=== PATIENT | female | born 1965 | race Caucasian/White ===

== ENCOUNTER 2018-05-12 16:57 | Observation (INO) | payer SELFPAY ==
[2018-05-12 17:44] LABS: Absolute Lymphocytes (CBC) 2.2 K/uL (0.7-4.9); Absolute Monocytes 0.5 K/uL (0.1-1.3); Absolute Neutrophil 2.8 K/uL (1.8-8.0); Basophils % 0.7 % (0-1.3); Eosinophils % 1.4 % (0-4.4); Hematocrit 40.4 % (36.0-45.0); Lymphocytes % 38.6 % (15.3-44.8); MCH 29.8 pg (27.0-35.0); MCV 87.5 fL (80-100); Monocytes % 9.6 % (3.3-12.3); RBC Red Blood Cell Count 4.61 M/uL (3.86-4.86)
[2018-05-12 17:47] LABS: Protime INR 0.97
[2018-05-12] MEDS ORDERED: ASPIRIN 81 MG CHEWABLE TABLET ONE (17:58)
[2018-05-12] MEDS ORDERED: PANTOPRAZOLE 40 MG INJ ONE (17:58)
[2018-05-12] MEDS ORDERED: ONDANSETRON 4 MG/2 ML VIAL ONE (17:58)
[2018-05-12 18:14] LABS: ALT/SGPT 20 U/L (12-78); AST/SGOT 8 U/L (15-37); Albumin 3.6 g/dL (3.4-5.0); Alkaline Phosphatase 86 U/L (45-117); BUN Blood Urea Nitrogen 9 mg/dL (7-18); Bicarbonate 29 mmol/L (21-32); Bilirubin Direct < 0.1 mg/dL (0-0.2); Bilirubin Total 0.3 mg/dL (0.2-1.0); Glucose Level 86 mg/dL (74-106); Magnesium 2.3 mg/dL (1.8-2.4); NT PRO-BNP 46 pg/mL (<125); Potassium 3.4 mmol/L (3.5-5.1); Sodium Level 140 mmol/L (136-145); Troponin (Emerg Dept Use Only) < 0.02 ng/mL (0.0-0.045)
[2018-05-12] MEDS ORDERED: MORPHINE 2 MG/ML SYR ONE ×2 (19:04→22:16)
--- NOTE | 2018-05-12 19:56 | RAD REPORT ---
EXAM DESCRIPTION: RAD - Chest Single View - 05/12/2018 7:46 pm CLINICAL HISTORY: CHEST PAIN Chest pain. COMPARISON: No comparisons FINDINGS: Portable technique limits examination quality. The lungs are grossly clear. The heart is normal in size. No displaced fractures. IMPRESSION: No acute intrathoracic process suspected.
--- NOTE | 2018-05-12 20:57 | RAD REPORT ---
EXAM DESCRIPTION: CT - Chest For Pe Angio - 05/12/2018 8:49 pm CLINICAL HISTORY: Chest pain. chest pain, shortness of breath COMPARISON: Chest Single View dated 05/12/2018 TECHNIQUE: CT angiogram of the pulmonary arteries was performed with MIP. All CT scans are performed using dose optimization technique as appropriate and may include automated exposure control or mA/KV adjustment according to patient size. FINDINGS: No evidence of pulmonary thromboembolism. No acute aortic finding demonstrated. The lungs are clear. No significant pericardial or pleural fluid. No concerning bony finding. Cholecystectomy clips. IMPRESSION: No evidence of pulmonary thromboembolism. No acute lung findings.
--- NOTE | 2018-05-12 21:11 | ER ---
Nurse's Notes [facility] Name: Olga Lidia Lehman Age: 53 yrs Sex: Female : 1965 Arrival Date: 05/12/2018 Time: 16:58 Bed 18 Private MD: Diagnosis: Chest pain, unspecified Presentation: 05/12 17:05 Presenting complaint: Burning substernal chest pain that radiates to left shoulder, hb nausea, and headache x 2 days. Hx SVT w/ ablation. Transition of care: patient was not received from another setting of care. Onset of symptoms was May 11, 2018. Risk Assessment: Do you want to hurt yourself or someone else? Patient reports no desire to harm self or others. Care prior to arrival: None. 17:05 Method Of Arrival: Ambulatory hb 17:05 Acuity: KIM 2 hb 17:05 Acuity: KIM 2 hb 17:25 Initial Sepsis Screen: Does the patient meet any 2 criteria? No. Patient's initial em sepsis screen is negative. Does the patient have a suspected source of infection? No. Patient's initial sepsis screen is negative. 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 - Social history:: Smoking status: Patient/guardian denies using tobacco. - Ebola Screening: : No symptoms or risks identified at this time. Screenin:08 Abuse screen: Denies threats or abuse. Denies injuries from another. Nutritional hb screening: No deficits noted. Tuberculosis screening: No symptoms or risk factors identified. Fall Risk None identified. Assessment: 17:15 General: Appears uncomfortable, Behavior is calm, cooperative. Pain: Complains of pain em in mid-sternal area Pain radiates to left scapular area Pain began this morning. Neuro: Level of Consciousness is awake, alert, obeys commands, Oriented to person, place, time, situation, Loan Services Professional are equal bilaterally Moves all extremities. Speech is normal, Pupils are PERRLA, Numbness in left arm paresthesias in left arm Reports headache. Cardiovascular: Reports shortness of breath, Heart tones S1 S2 present Capillary refill < 3 seconds Patient's skin is warm and dry. Rhythm is sinus rhythm. Respiratory: Airway is patent Respiratory effort is even, unlabored, Respiratory pattern is regular, symmetrical. GI: Abdomen is flat, Patient currently denies nausea, vomiting. : No signs and/or symptoms were reported regarding the genitourinary system. EENT: No signs and/or symptoms were reported regarding the EENT system. Derm: Skin is intact, is healthy with good turgor, Skin is pink, warm \T\ dry. Musculoskeletal: Range of motion: intact in all extremities. 18:00 Reassessment: Patient appears in no apparent distress at this time. Patient and/or em family updated on plan of care and expected duration. Pain level reassessed. Patient is alert, oriented x 3, equal unlabored respirations, skin warm/dry/pink. 18:47 Reassessment: Patient appears in no apparent distress at this time. Patient and/or em family updated on plan of care and expected duration. Pain level reassessed. Patient is alert, oriented x 3, equal unlabored respirations, skin warm/dry/pink. rates pain 8/10 Patient states symptoms have improved. 18:55 Reassessment: Patient appears in no apparent distress at this time. reports headache em and chest pain, provider notified, new medications ordered. 19:15 Pain: Complains of pain in chest Pain currently is 6 out of 10 on a pain scale. Quality lp1 of pain is described as burning. Neuro: Level of Consciousness is awake, alert, obeys commands, Gait is steady. Cardiovascular: Patient's skin is warm and dry. Rhythm is sinus rhythm. Respiratory: Respiratory effort is even, unlabored. Derm: Skin is pink, warm \T\ dry. 20:15 Reassessment: Patient appears in no apparent distress at this time. Patient and/or lp1 family updated on plan of care and expected duration. Pain level reassessed. Patient is alert, oriented x 3, equal unlabored respirations, skin warm/dry/pink. 21:10 Reassessment: Patient appears in no apparent distress at this time. Patient is alert, lp1 oriented x 3, equal unlabored respirations, skin warm/dry/pink. Patient states feeling better. Patient states symptoms have improved. 22:00 Reassessment: Patient and/or family updated on plan of care and expected duration. Pain lp1 level reassessed. Patient is alert, oriented x 3, equal unlabored respirations, skin warm/dry/pink. Patinet aware of pending admission; Provider notified of elevated BP, asymptomatic. Vital Signs: 17:06 BP 176 / 110; Pulse 83; Resp 21; Pulse Ox 100% on R/A; Pain 8/10; hb 18:00 BP 158 / 105; Pulse 72; Resp 18; Pulse Ox 99% on R/A; em 18:48 BP 175 / 98; Pulse 75; Resp 19; Pulse Ox 99% on R/A; Pain 8/10; em 19:05 Temp 98.8(O); em 19:30 BP 161 / 95; Pulse 70; Resp 16; Pulse Ox 99% on R/A; lp1 20:00 BP 162 / 96; Pulse 78; Resp 20; Pulse Ox 98% on R/A; lp1 21:00 BP 175 / 100; Pulse 71; Resp 15; Pulse Ox 98% on R/A; Pain 0/10; lp1 22:00 BP 163 / 99; Pulse 77; Resp 20; Pulse Ox 99% on R/A; lp1 22:50 BP 164 / 94; Pulse 71; Resp 15; Pulse Ox 99% on R/A; Pain 0/10; lp1 ED Course: 16:58 Patient arrived in ED. as 17:06 Triage completed. hb 17:07 Trevor Bonilla LVN is Primary Nurse. em 17:07 Arm band placed on right wrist. hb 17:15 editorial specialist on. Pulse ox on. NIBP on. em 17:15 Initial lab(s) drawn, by tx, sent to lab. Inserted saline lock: 20 gauge in right em antecubital area, using aseptic technique. Blood collected. 17:15 Patient maintains SpO2 saturation greater than 95% on room air. em 17:16 EKG done, by ED staff, reviewed by Tyrone Winston MD. formerly [facility] 17:22 Ross Uriarte PA is PHCP. [facility] 17:22 Tyrone Winston MD is Attending Physician. [facility] 19:15 Patient has correct armband on for positive identification. Bed in low position. Call lp1 light in reach. 19:43 X-ray completed. Portable x-ray completed in exam room. Patient tolerated procedure tm4 well. 20:48 CT completed. Patient moved to CT via wheelchair. Patient moved back from CT. kw1 21:10 Gi Hamilton MD is Hospitalizing Provider. [facility] 21:11 No provider procedures requiring assistance completed. lp1 21:11 Patient admitted, IV remains in place. lp1 Administered Medications: 17:58 Drug: Aspirin 325 mg Route: PO; em 19:01 Follow up: Response: No adverse reaction em 18:01 Drug: ProTONIX 40 mg Route: IVP; Site: right antecubital; hb 19:02 Follow up: Response: No adverse reaction em 18:01 Drug: Zofran 4 mg Route: IVP; Site: right antecubital; hb 19:02 Follow up: Response: No adverse reaction em 19:22 Drug: morphine 2 mg Route: IVP; Site: right antecubital; lp1 20:00 Follow up: Response: Pain is decreased lp1 22:12 Drug: morphine 2 mg Route: IVP; Site: right antecubital; lp1 23:05 Follow up: Response: No adverse reaction; Blood pressure is unchanged lp1 Outcome: 21:10 Decision to Hospitalize by Provider. [facility] 21:11 Condition: stable lp1 21:11 Instructed on the need for admit. 22:50 Admitted to Med/surg accompanied by nurse, via wheelchair, room 230, with chart, Report lp1 called to Adry Cantu LVN 23:17 Patient left the ED. lp1 Signatures: Ross Uriarte PA PA Trista Osorio tm4 Trevor Bonilla LVN ICT DEVELOPMENT MANAGER em Nita Ward Laura, RN RN lp1 Hazel Puente RN RN Dali Garcia formerly [facility] Erna Galdamez kw1
--- NOTE | 2018-05-12 21:11 | EDPHYS ---
Physician Documentation [facility] Name: Olga Lidia Lehman Age: 53 yrs Sex: Female : 1965 Arrival Date: 05/12/2018 Time: 16:58 Bed 18 Private MD: ED Physician Tyrone Winston HPI: 05/12 17:30 This 53 yrs old Female presents to ER via Ambulatory with complaints of Chest jmm Pain, Shoulder Pain, High Blood Pressure. 17:30 The patient or guardian reports chest pain that is located primarily in the substernal jmm area. Onset: this morning. The pain radiates to the left arm. Associated signs and symptoms: Pertinent positives: nausea. The chest pain is described as burning. Duration: The patient or guardian reports a single episode, that is still ongoing. Modifying factors: The symptoms are alleviated by nothing. the symptoms are aggravated by nothing. This is a 53 year old female with a history of SVT that presents to the ED with substernal chest pain and nausea beginning this morning. Patient states yesterday she had difficulty swallowing her food an attempted to alleviate her nausea with carafate. Patient awoke this morning with nausea and chest pain. . 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 - Social history:: Smoking status: Patient/guardian denies using tobacco. - Ebola Screening: : No symptoms or risks identified at this time. ROS: 17:30 Constitutional: Negative for fever, chills, and weight loss. jmm 17:30 Cardiovascular: Positive for chest pain. 17:30 Respiratory: Positive for shortness of breath. 17:30 Abdomen/GI: Positive for nausea and vomiting. 17:30 All other systems are negative. Exam: 17:30 Constitutional: This is a well developed, well nourished patient who is awake, alert, jmm and in no acute distress. Head/Face: atraumatic. Eyes: EOMI, no conjunctival erythema appreciated ENT: Moist Mucus Membranes Neck: Trachea midline, Supple Chest/axilla: Normal chest wall appearance and motion. 17:30 Cardiovascular: Rate: normal, Rhythm: regular, Pulses: no pulse deficits are appreciated. 17:30 Respiratory: the patient does not display signs of respiratory distress, Respirations: normal, Breath sounds: are clear throughout. 17:30 Abdomen/GI: Inspection: abdomen appears normal, Bowel sounds: normal, Palpation: abdomen is soft and non-tender, in all quadrants. 17:30 Back: ROM is normal. 17:30 Musculoskeletal/extremity: ROM: intact in all extremities. 17:30 Skin: Appearance: Color: normal in color. 17:30 Neuro: Orientation: is normal, Mentation: is normal, Memory: is normal, Gait: is steady. 17:30 Psych: Behavior/mood is pleasant, cooperative. Vital Signs: 17:06 BP 176 / 110; Pulse 83; Resp 21; Pulse Ox 100% on R/A; Pain 8/10; hb 18:00 BP 158 / 105; Pulse 72; Resp 18; Pulse Ox 99% on R/A; em 18:48 BP 175 / 98; Pulse 75; Resp 19; Pulse Ox 99% on R/A; Pain 8/10; em 19:05 Temp 98.8(O); em 19:30 BP 161 / 95; Pulse 70; Resp 16; Pulse Ox 99% on R/A; lp1 20:00 BP 162 / 96; Pulse 78; Resp 20; Pulse Ox 98% on R/A; lp1 21:00 BP 175 / 100; Pulse 71; Resp 15; Pulse Ox 98% on R/A; Pain 0/10; lp1 22:00 BP 163 / 99; Pulse 77; Resp 20; Pulse Ox 99% on R/A; lp1 22:50 BP 164 / 94; Pulse 71; Resp 15; Pulse Ox 99% on R/A; Pain 0/10; lp1 MDM: 17:30 Patient medically screened. mohan 21:09 The patient was given aspirin in the Emergency Department. Data reviewed: vital signs, [facility] nurses notes, lab test result(s), radiologic studies, CT scan. Data interpreted: Pulse oximetry: on room air is 99 %. Interpretation: normal. 05/12 17:16 Order name: Basic Metabolic Panel em 05/12 17:16 Order name: CBC with Diff em / 17:16 Order name: LFT's em / 17:16 Order name: Magnesium em / 17:16 Order name: NT PRO-BNP em / 17:16 Order name: PT-INR em / 17:16 Order name: Troponin (emerg Dept Use Only) em 12/ 17:46 Order name: CBC with Automated Diff; Complete Time: 18:03 EDMS 12/ 17:56 Order name: Protime (+INR); Complete Time: 18:03 EDMS 12/ 18:14 Order name: Basic Metabolic Panel; Complete Time: 18:53 EDMS / 18:14 Order name: Liver (Hepatic) Function; Complete Time: 18:53 EDMS / 18:14 Order name: Troponin (Emerg Dept Use Only); Complete Time: 18:53 EDMS 05/12 18:14 Order name: NT PRO-BNP; Complete Time: 18:53 EDMS 05/12 18:14 Order name: Magnesium; Complete Time: 18:53 EDMS 05/12 17:16 Order name: XRAY Chest (1 view) em / 17:16 Order name: EKG; Complete Time: 18:55 em 05/12 17:16 Order name: Cardiac monitoring; Complete Time: 17:22 em 05/12 17:16 Order name: EKG - Nurse/Tech; Complete Time: 17:22 em 05/12 17:16 Order name: IV Saline Lock; Complete Time: 17:22 em 05/12 17:16 Order name: Labs collected and sent; Complete Time: 17:22 em 05/12 17:16 Order name: O2 Per Protocol; Complete Time: 17:22 em 05/12 17:16 Order name: O2 Sat Monitoring; Complete Time: 17:22 em 05/12 19:56 Order name: RAD; Complete Time: 20:04 EDMS 12/ 20:12 Order name: CT Chest For PE Angio [facility] 05/12 20:57 Order name: CT; Complete Time: 20:59 EDMS Administered Medications: 17:58 Drug: Aspirin 325 mg Route: PO; em 19:01 Follow up: Response: No adverse reaction em 18:01 Drug: ProTONIX 40 mg Route: IVP; Site: right antecubital; hb 19:02 Follow up: Response: No adverse reaction em 18:01 Drug: Zofran 4 mg Route: IVP; Site: right antecubital; hb 19:02 Follow up: Response: No adverse reaction em 19:22 Drug: morphine 2 mg Route: IVP; Site: right antecubital; lp1 20:00 Follow up: Response: Pain is decreased lp1 22:12 Drug: morphine 2 mg Route: IVP; Site: right antecubital; lp1 23:05 Follow up: Response: No adverse reaction; Blood pressure is unchanged lp1 Disposition: 05/12/18 21:10 Hospitalization ordered by Gi Hamilton for Observation. Preliminary diagnosis is Chest pain, unspecified. - Bed requested for Telemetry/MedSurg (observation). - Status is Observation. lp1 - Condition is Stable. - Problem is new. - Symptoms have improved. UTI on Admission? No Addendum: 05/14/2018 07:08 Co-signature as Attending Physician, Tyrone Winston MD I agree with the assessment and c parada plan of care. Signatures: Dispatcher [employer] Erna Rodrigues, RN Tyrone Varela MD MD cha Mickail, Joel, PA PA [facility] Trevor Bonilla, FARM LABORER FARM LABORER em Brenna Weaver, TOMMY RN [facility] Hazel Puente RN RN Corrections: (The following items were deleted from the chart) 05/12 22:13 21:10 Hospitalization Ordered by Gi Hamilton MD for Observation. Preliminary kl diagnosis is Chest pain, unspecified. Bed requested for Telemetry/MedSurg (observation). Status is Observation. Condition is Stable. Problem is new. Symptoms have improved. UTI on Admission? No. [facility] 23:17 22:13 05/12/2018 21:10 Hospitalization Ordered by Gi Hamilton MD for Observation. lp1 Preliminary diagnosis is Chest pain, unspecified. Bed requested for Telemetry/MedSurg (observation). Status is Observation. Condition is Stable. Problem is new. Symptoms have improved. UTI on Admission? No. kl
[2018-05-12] MEDS ORDERED: MORPHINE 4 MG/ML SYR IV PRN (21:21)
[2018-05-12] MEDS ORDERED: ACETAMINOPHEN 500 MG TAB PO PRN (21:21)
[2018-05-12 23:24] VITALS: BMI 32.9
[2018-05-13 05:31] LABS: Absolute Lymphocytes (CBC) 2.4 K/uL (0.7-4.9); Absolute Monocytes 0.6 K/uL (0.1-1.3); Absolute Neutrophil 2.8 K/uL (1.8-8.0); Basophils % 0.8 % (0-1.3); Eosinophils % 2.1 % (0-4.4); Hematocrit 38.7 % (36.0-45.0); Lymphocytes % 40.2 % (15.3-44.8); MCH 29.9 pg (27.0-35.0); MCV 88.6 fL (80-100); MPV 7.8 fL (7.6-11.3); Monocytes % 9.8 % (3.3-12.3); RBC Red Blood Cell Count 4.36 M/uL (3.86-4.86)
[2018-05-13 05:32] LABS: Potassium 3.4 mmol/L (3.5-5.1)
--- NOTE | 2018-05-13 06:17 | EKG ---
Test Date: 2018-05-12 Test Time: 17:09:06 Compo Caster: RAJINDER MEASUREMENT RESULTS: Intervals: Rate: 70 TN: 138 QRSD: 84 QT: 406 QTc: 438 [place]: P: 14 TN: 138 QRS: 0 T: 15 INTERPRETIVE STATEMENTS: Normal sinus rhythm Possible Left atrial enlargement Left ventricular hypertrophy Nonspecific ST abnormality Abnormal ECG No previous ECG available for comparison Electronically Signed On 05-13-18 06:16:28 MEDICAL OFFICER by Ryder Mcgee
[2018-05-13] MEDS: ENOXAPARIN 40 MG/0.4 ML SQ SCH (09:07)
[2018-05-13] MEDS: ASPIRIN EC 81 MG TAB PO SCH (09:08)
[2018-05-13] MEDS: METOPROLOL TAR 50 MG TAB PO SCH ×2 (09:08→21:02)
--- NOTE | 2018-05-13 09:24 | P.HP ---
Certification for Inpatient Patient admitted to: Observation With expected LOS: <2 Midnights Patient will require the following post-hospital care: None Practitioner: I am a practitioner with admitting privileges, knowledge of patient current condition, hospital course, and medical plan of care. Services: Services provided to patient in accordance with Admission requirements found in Title 42 Section 412.3 of the Code of Federal Regulations Patient History Date of Service: 05/12/18 Reason for admission: Chest pain rule out acute coronary syndrome History of Present Illness: Patient is a 53-year-old female who came into the hospital with chest pain. Pain is mainly in the sternal region.. The pain radiates to the left arm. Patient also has some nausea. Patient has a history of heart disease and was diagnosed with SVT many years ago. Patient had a cardiac ablation. This was done about 2 years ago. Since then she is doing okay. She has had a lot of stress in her life lately with her passing away from cancer and her sister also recently passing away. Patient was concerned because the chest pain was not improving. She decided to come into the hospital for further evaluation. In the ER her EKG and troponins have been negative. She will be ruled out for acute coronary syndrome. Additional cardiac workup per Cardiology. Allergies No Known Allergies Allergy (Verified 05/12/18 23:40) Home Medications: Levothyroxine [Synthroid*] 0.15 mg PO DAILY 05/12/18 - Past Medical/Surgical History Has patient received pneumonia vaccine in the past: No Diabetic: No -: hypothyroidism -: SVTs -: Laparoscopic cholecystectomy -: Cardiac Ablation -: Bilateral Tubal Ligation -: DNC with Ablation -: Neck Surgery - Family History Father Family History: Reviewed- Non-Contributory - Social History Smoking Status: Never smoker Alcohol use: Yes CD- Drugs: No Caffeine use: Yes Place of Residence: Home Review of Systems 10-point ROS is otherwise unremarkable Physical Examination - Vital Signs Temperature: 97.7 F Blood Pressure: 137/88 Pulse: 75 Respirations: 20 Pulse Ox (%): 97 - Physical Exam General: Alert, In no apparent distress, Oriented x3 HEENT: Atraumatic, PERRLA, Mucous membr. moist/pink, EOMI, Sclerae nonicteric Neck: Supple, 2+ carotid pulse no bruit, No LAD, Without JVD or thyroid abnormality Respiratory: Clear to auscultation bilaterally, Normal air movement Cardiovascular: Regular rate/rhythm, Normal S1 S2, No murmurs Gastrointestinal: Normal bowel sounds, Soft and benign, Non-distended, No tenderness Musculoskeletal: No clubbing, No swelling, No tenderness Integumentary: No rashes Neurological: Normal gait, Normal speech, Normal strength at 5/5 x4 extr, Normal tone, Sensation intact, Cranial nerves 3-12 intact, Normal affect Lymphatics: No axilla or inguinal lymphadenopathy - Studies Laboratory Data (last 24 hrs) 05/12/18 17:20: PT 11.4, INR 0.97 05/12/18 17:20: WBC 5.7, Hgb 13.8, Hct 40.4, Plt Count 318 05/12/18 17:20: Sodium 140, Potassium 3.4 L, BUN 9, Creatinine 0.60, Glucose 86 , Magnesium 2.3, Total Bilirubin 0.3, AST 8 L, ALT 20, Alkaline Phosphatase 86 05/12/18 17:16: PT Cancelled, INR Cancelled 05/12/18 17:16: WBC Cancelled, Hgb Cancelled, Hct Cancelled, Plt Count Cancelled 05/12/18 17:16: Sodium Cancelled, Potassium Cancelled, BUN Cancelled, Creatinine Cancelled, Glucose Cancelled, Magnesium Cancelled, Total Bilirubin Cancelled, AST Cancelled, ALT Cancelled, Alkaline Phosphatase Cancelled Assessment & Plan - Problems (Diagnosis) (1) Chest pain, rule out acute myocardial infarction Current Visit: Yes Status: Acute (2) H/O supraventricular tachycardia Current Visit: Yes Status: Acute - Plan 1. Serial troponins and EKG 2. Cardiology consultation 3. Echocardiogram & pending cardiology evaluation) 4. Anti-platelet therapy, anti coagulation, beta-pavel, statin, and O2 as needed 5. Telemetry 6. GI/DVT prophylaxis Discharge Plan: Home Plan to discharge in: 24 Hours - Advance Directives Does patient have a Living Will: No Does patient have a Durable POA for Healthcare: No - Code Status/Comfort Care Code Status Assessed: No Code Status: Full Code Critical Care: No Time Spent Managing PTS Care (In Minutes): 50
--- NOTE | 2018-05-13 17:18 | CON ---
History Of Present Illness: Mrs. Lehman is 53. She came to the hospital, feeling bad, blood pressure is up, and she was having chest pain. Since she has been here, [place] was ruled out. An EKG is very ab normal, suggestive of left ventricular hypertrophy. The patient has had SVT for most of her life, an d in 2015 underwent an AV node modification and has had no SVT since then. She has been on blood pre ssure medicines in the past, but stopped them all and she notes her blood pressures often in the 140 to 160 systolic and 80s to 90s diastolic. Yesterday, it was quite a bit higher with diastolic of 120 , so she came to the hospital. An EKG shows left ventricular hypertrophy with repolarization abnorma lity. Allergies: THE PATIENT HAS NO ALLERGIES. Medications: Outpatient medication: Levothyroxine 150 mcg daily. Physical Examination: VITAL SIGNS: Five feet and 2 inches, 180 pounds. HEENT: Normal. Lungs: Clear. Cardiac: Normal. Abdomen: Soft. Extremities: Normal. Impression: The patient has uncontrolled hypertension that probably gave her the chest pain and made her EKG looks like left ventricular hypertrophy. I think we should do a nuclear stress test tomorro w. She is doing well on a beta pavel, makes me wonder if she might be hyperthyroid. I think we sh ould check a TSH if not free T3 and free T4 as well. It looks like the metoprolol 50 b.i.d. is doing a fairly good job controlling her blood pressure, not causing symptoms, so perhaps she could be discharged on that if the stress test is normal. SH/MODL Voice ID: [id number] Report ID: [id number]
--- NOTE | 2018-05-13 19:57 | PN ---
Date of Progress Note: 05/13/2018 Subjective: The patient was seen and examined, chart reviewed, and case discussed with RN and Dr. Mcgee. The patient states that her chest pain has improved as well as her dysphagia. The patient reported dysphagia to both solids and liquids, however, was able to tolerate her breakfast without much difficulty. Denies any hoarseness in her voice. Medications: List reviewed. Physical Examination: Vital Signs: Temperature 97, heart rate 61, blood pressure 144/85, respirations 20, O2 97% on room air. General: Awake, alert, oriented x3. Some mild distress. Ill-appearing female. Obese. BMI 32.9. CV: S1, S2. Regular rate and rhythm. Peripheral pulses present. Respiratory: Clear to auscultation bilaterally. No wheezing or stridor. No use of accessory muscles. Gastrointestinal: Abdomen is soft, nontender, nondistended. Positive bowel sounds. No guarding or rigidity. Extremities: No clubbing, cyanosis, or edema. Neuro: Cranial nerves 2 through 12 intact grossly. No focal neurological deficit. Speech is normal. HEENT: Normocephalic, atraumatic. PERRLA. EOMI. Moist mucous membranes. Oropharynx is clear. Normal dentition. Neck: Supple. No JVD. Trachea midline. No thyromegaly. No lymphadenopathy. Laboratory Data: Sodium 142, potassium 3.4, chloride 106, CO2 30, BUN 8, creatinine 0.7, glucose 88, calcium 8.7. Triglycerides 69, cholesterol 183, LDL 92, HDL 77. TSH 1.3. Troponin less than 0.02. WBC 5.9, hemoglobin and hematocrit 13 and 38.7, platelets 277. CT angio chest shows no evidence of PE. No acute lung finding. Chest x-ray shows no acute intrathoracic process, personally reviewed. Assessment: A 53-year-old female with: 1. Chest pain, rule out acute coronary syndrome. Cardiac enzymes negative to date x2. No changes on EKG. Appreciate Dr. Mcgee' input. Continue with chest pain guidelines. 2. History of supraventricular tachycardia. 3. Obesity, BMI 32. 4. Hypokalemia. We will replace and monitor. 5. Hypothyroidism. TSH is normal. Continue Synthroid. 6. Gastrointestinal and deep venous thrombosis prophylaxis addressed. 7. Odynophagia: improving. Tolerating diet. Plan: 1. Obtain echocardiogram. 2. Continue telemetry. 3. Likely discharge in the next 24 hours if continues to improve after cardiac workup is complete. /JUANA Voice ID: [id number] Report ID: [id number]
[2018-05-14] MEDS ORDERED: LEVOTHYROXINE SOD 0.075 MG TAB PO SCH (06:00)
[2018-05-14 06:45] LABS: Magnesium 2.4 mg/dL (1.8-2.4); Potassium 4.3 mmol/L (3.5-5.1)
[2018-05-14] MEDS ORDERED: REGADENOSON 0.4 MG/5 ML SYR IV ONE (09:20)
[2018-05-14] MEDS: ENOXAPARIN 40 MG/0.4 ML SQ SCH (10:35)
[2018-05-14] MEDS: ASPIRIN EC 81 MG TAB PO SCH (10:35)
[2018-05-14] MEDS: METOPROLOL TAR 50 MG TAB PO SCH (10:35)
--- NOTE | 2018-05-14 11:49 | RAD REPORT ---
EXAM DESCRIPTION: NM - Rest Stress Cardiac Imaging - 05/14/2018 11:41 am CLINICAL HISTORY: CP Chest pain. COMPARISON: No comparisons TECHNIQUE: The patient was administered approximately 10mCi of Tc 99m Sestamibi prior to resting SPE CT imaging of the heart. The patient was then administered approximately 30 mCi of Tc 99m Sestamibi f ollowing exercise or pharmacologic stress. Multiplanar SPECT images were reviewed. FINDINGS: No stress induced ischemic defect is seen to suggest stress induced ischemia. No fixed def ect is seen to suggest hibernating myocardium or scarred myocardium. The end diastolic volume is 109 ml, the end systolic volume is 45 ml, and the ejection fraction is 59 %. IMPRESSION: No stress induced ischemia.
--- NOTE | 2018-05-14 12:08 | TREADPHA ---
DX: CHEST PAIN Date of Study: 05/14/2018 Ht: 5 2 Wt: 180 lb 2 oz Consulting Physician: ELOINA MEDICATIONS: TYLENOL, ASPIRIN, LOVENOX, LOPRESSOR HISTORY: 53 YEAR OLD FEMALE WITH COMPLAINTS OF CHEST PAIN. HISTORY OF SUPRAVENTRICULAR TACHYCARDIA, HYPOTHYROIDISM AND CARDIAC ABLATION. PHYSICIAL EXAMINATION: RESTING B.P.: 154/94 RESTING H.R.: 59 RESTING EKG: SINUS BRADYCARDIA OTHERWISE NORMAL. PROTOCOL: LEXISCAN EXERCISE TIME: 3:30 B.P. AT PEAK STRESS: 144/86 IMPRESSION: LEXISCAN INJECTED. CARDIOLITE INJECTED PER PROTOCOL. SEE NUCLEAR MEDICINE REPORT. NO SUPRAVENTRICULAR OR VENTRICULAR TACHYCARDIA NOTED. NO PREMATURE VENTRICULAR COMPLEXES. NO PREMATURE ATRIAL COMPLEXES. NO REPORT OF CHEST PAIN. NON DIAGNOSTIC EKG WITH LEXISCAN STRESS TEST.
[2018-05-14 12:56] VITALS: O2SAT 98
[2018-05-14 15:07] VITALS: BP 143/85; TEMP 98.1
--- NOTE | 2018-05-15 10:53 | DS ---
Date of Discharge: 05/14/2018 Procedures: On 05/14/2018, cardiac stress test negative for any stress-induced ischemia. Admitting Diagnoses: 1.Chest pain, rule out acute coronary syndrome. 2.History of supraventricular tachycardia. Discharge Diagnoses: 1.Chest pain, acute coronary syndrome ruled out. 2.History of supraventricular tachycardia. 3.Obesity, BMI 32. 4.Hypertensive heart disease. 5.Hypokalemia, corrected. 6.Hypothyroidism. TSH normal. 7.Uncontrolled hypertension, improved. Hospital Course: The patient is a 53-year-old female, recently moved from [place], comes in with chest pain. The patient does have history of SVT and cardiac ablation. She has been under a lot of stress recently from losing her sister and who very recently. The patient did parada ve some LVH on her EKG. She was admitted and worked up for ACS. Her cardiac enzymes were negative. ACS was ruled out. She did have some hypokalemia, which was corrected. Her lipid panel was normal. TSH was checked which showed a level of 1.3, which was also normal. Her Synthroid dose was continu ed. Dr. Mcgee evaluated the patient and recommended cardiac stress testing which was negative for a ny stress-induced ischemia. The patient did have a CT angio chest, which was negative for PE. The p atient was then cleared for discharge. Her symptoms had resolved. Her blood pressure was improved o n beta-blockers. The patient was then discharged home in a stable condition. Activity: As tolerated. Medications: As per medication reconciliation list. 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 Establish care with primary care physician in 1 week. Return to ER for worsening condition. Diet: Heart healthy. Physical Examination: General: Awake, alert, oriented, no acute distress. CV: S1, S2. No murmurs. Respiratory: Moving air well bilaterally. No wheezing. Gastrointestinal: Abdomen is soft, nontender, and nondistended. Positive bowel sounds. Extremities: No clubbing, cyanosis, or edema. Neurologic: Nonfocal. SA/MODL Voice ID: [id number] Report ID: [id number]
== END 2018-05-14 13:53 | disposition home or self-care (01) ==
LOC: ER 16:57 → ERHOLD 21:11 → 2ND 22:17
PROVIDERS: ADMIT Hospitalist; ATTEND Hospitalist
DX: R07.9 Chest pain, unspecified (principal); E87.6 Hypokalemia; E66.9 Obesity, unspecified; Z68.32 Body mass index [BMI] 32.0-32.9, adult; E03.9 Hypothyroidism, unspecified; R13.10 Dysphagia, unspecified; I11.9 Hypertensive heart disease without heart failure
CPT/HCPCS: 36415; 71045; 71275; 78452; 80048; 80061; 80076; 83735; 83880; 84443; 84484; 85025; 85610; 93005; 93017; 96374; 96375; 99285; A9500; C9113; G0378; J1650; J2270; J2405; J2785; Q9967